=== PATIENT | female | born 1950 | race Caucasian/White ===

== ENCOUNTER 2018-05-09 10:15 | Emergency (ER) | payer MEDICARE, OTHER | END 2018-05-09 14:02 | disposition home or self-care (01) | LOC: E/R 10:15 | DX: M79.605 Pain in left leg (principal); G57.02 Lesion of sciatic nerve, left lower limb; G57.12 Meralgia paresthetica, left lower limb; I16.0 Hypertensive urgency; R03.0 Elevated blood-pressure reading, without diagnosis of hypertension; F17.210 Nicotine dependence, cigarettes, uncomplicated | CPT/HCPCS: 99284 ==